=== PATIENT | female | born 1960 | race Hispanic/Latino ===

== ENCOUNTER 2022-07-03 13:12 | Inpatient (IN) | payer OTHER ==
[2022-07-03] VITALS (8 sets, daily range): BP systolic 117–172; BP diastolic 75–104
[~2022-07-03] VITALS: Ht 154.9 cm; Wt 61.2 kg
[2022-07-03 15:44] LABS: HEMATOCRIT 47.2 % (37.0-47.0); HEMOGLOBIN 15.3 g/dl (12.0-16.0); IMMATURE GRANULOCYTES 0.2 % (0.0-5.0); MEAN CELL VOLUME 98.1 fL CALC (80.0-100.0); MEAN CORPUSCULAR HGB 31.8 pG CALC (26.0-32.0); MEAN CORPUSCULAR HGB CONC 32.4 g/dL CAL (32.0-36.0); NEUT# 3.64 thou/uL (2.00-7.15); RED BLOOD COUNT 4.81 mill/uL (4.20-5.60); RED CELL DISTRI WIDTH 13.3 % (11.5-15.5)
[2022-07-03 15:57] LABS: ALBUMIN 4.3 g/dL (3.2-5.0); ALKALINE PHOSPHATASE 85 u/l (38-126); ANION GAP 12 (6-22 (CALC)); BILIRUBIN, TOTAL 0.4 mg/dL (0.0-1.4); BUN 12 mg/dL (8-23); BUN/CREATININE RATIO 17 (12-20 (CALC)); CARBON DIOXIDE 29 mmol/l (22-30); CHLORIDE 98 mmol/l (95-108); CREATININE 0.7 mg/dL (0.5-1.0); GFR FOR AFR.AMER. > 60 ML/MIN (>=60 (CALC)); GFR OTHER RACES > 60 ML/MIN (>=60 (CALC)); POTASSIUM 3.6 mmol/l (3.5-5.1); SGOT/AST 55 u/l (9-36); SODIUM 135 mmol/l (137-146); TOTAL PROTEIN 7.4 g/dL (6.3-8.2)
[2022-07-03 16:46] LABS: URINE BLOOD DIPSTICK NEGATIVE (NEGATIVE); URINE COLOR YELLOW; URINE GLUCOSE - DIPSTICK NEGATIVE (NEGATIVE); URINE KETONE TRACE mg/dL (NEGATIVE); URINE LEUK ESTERASE NEGATIVE (NEGATIVE); URINE PROTEIN - DIPSTICK TRACE mg/dL (NEG-TRACE); URINE UROBILINOGEN - DIPSTICK 0.2 E.U./dL (0.2)
[2022-07-03 16:47] LABS: URINE BILIRUBIN - DIPSTICK NEGATIVE (NEGATIVE); URINE NITRITE - DIPSTICK NEGATIVE (Negative)
[2022-07-03] MEDS ORDERED: POTASSIUM CHLO10 ME1 PO (17:13)
[2022-07-03] MEDS ORDERED: LIPITOR10 M1 PO (17:13)
[2022-07-03] MEDS ORDERED: PROZAC10 MG PO (17:15)
[2022-07-03] MEDS ORDERED: MAXZIDE1 TAB PO (17:15)
[2022-07-03] MEDS ORDERED: SINGULAIR10 MG PO (17:16)
[2022-07-04 04:13] VITALS: BP 141/87
[2022-07-04 07:13] VITALS: BP 138/93
[2022-07-04 10:27] VITALS: BP 111/75
[2022-07-04] MEDS ORDERED: K-TABS10 MEQ PO (13:30)
[2022-07-04 14:43] VITALS: BP 107/66
[2022-07-04 18:54] VITALS: BP 111/75
[2022-07-04 23:56] VITALS: BP 125/80
[2022-07-05 03:47] VITALS: BP 129/76
[2022-07-05 06:57] VITALS: BP 128/80
[2022-07-05 10:23] VITALS: BP 118/67
[2022-07-05 15:16] VITALS: BP 128/84
[2022-07-05 19:26] VITALS: BP 121/80
[2022-07-06 00:08] VITALS: BP 120/76
[2022-07-06 04:15] VITALS: BP 148/91
[2022-07-06 06:10] VITALS: BP 153/107
[2022-07-06 11:29] VITALS: BP 128/84
[2022-07-06] MEDS ORDERED: MEDDOSEPAK PO (11:55)
[2022-07-06] MEDS ORDERED: ZITHROMAX250 MG PO (11:55)
[2022-07-06] MEDS ORDERED: BIOTUSSIN PO (11:55)
[2022-07-06] MEDS ORDERED: TAM75CAP PO (11:55)
[2022-07-06 15:59] VITALS: BP 131/80
[2022-07-06 18:54] VITALS: BP 127/85
[2022-07-07] VITALS (9 sets, daily range): BP systolic 117–159; BP diastolic 59–99
[2022-07-08] VITALS: BP 142/89
[2022-07-08 00:01] VITALS: BP 142/89
[2022-07-08 03:55] VITALS: BP 161/94
[2022-07-08 04:00] VITALS: BP 161/94
[2022-07-08 06:32] VITALS: BP 147/78
== END 2022-07-08 15:13 | disposition home or self-care (01) | DRG 193 ==
LOC: ED 13:12 → ED-I 17:00 → ED 17:13 → MS2 17:14
PROVIDERS: Family Medicine; ADMIT Internal Medicine; ATTEND Internal Medicine
DX: J10.1 Influenza due to other identified influenza virus with other respiratory manifestations (principal); J96.01 Acute respiratory failure with hypoxia; J44.1 Chronic obstructive pulmonary disease with (acute) exacerbation; J45.901 Unspecified asthma with (acute) exacerbation; I10 Essential (primary) hypertension; E78.00 Pure hypercholesterolemia, unspecified; F41.9 Anxiety disorder, unspecified; F32.A Depression, unspecified; F17.210 Nicotine dependence, cigarettes, uncomplicated; Z86.73 Personal history of transient ischemic attack (TIA), and cerebral infarction without residual deficits; Z20.822 Contact with and (suspected) exposure to COVID-19
CPT/HCPCS: J1650